=== PATIENT | male | born 1975 | race Caucasian/White ===

== ENCOUNTER 2016-11-17 12:23 | Emergency (ER) | payer OTHER ==
[2016-11-17 12:27] VITALS: BP 155/82; PULSE 91; TEMP 98; BMI 32.2
[2016-11-17] MEDS ORDERED: predniSONE 20 MG TABLET (UD) ONE (13:19)
[2016-11-17] MEDS ORDERED: ALBUTEROL SO4 2.5/IPRATROPIUM 0.5 INH SOL 3 ML VIAL.NEB. NEB ONE ×3 (13:19→13:24)
--- NOTE | 2016-11-17 13:23 | PDOC ---
History of Present Illness - General Chief Complaint: Cold Symptoms Stated Complaint: COUGH Time Seen by Provider: 11/17/16 13:12 History Source: Patient Exam Limitations: No Limitations - History of Present Illness Initial Comments: 11/17/16 13:23 Patient is here with complaints of persistent cough, and chest tightness. States was seen by his PMD last week, given prescription for Zithromax which she completed course, also has been using antihistamines, Zyrtec with no complete resolve. 11/17/16 13:23 Timing/Duration: reports: changing over time, intermittent Severity: reports: mild, moderate Past History - Travel Traveled outside of the country in the last 30 days: No Close contact w/someone who was outside of country & ill: No - Past Medical History Allergies/Adverse Reactions: Allergies Allergy/AdvReac Type Severity Reaction Status Date / Time No Known Drug Allergies Allergy Verified 11/17/16 12:27 seafood Allergy Uncoded 11/17/16 12:27 Home Medications: Ambulatory Orders Acetaminophen [Tylenol] 650 mg PO DAILY 07/10/15 Aspirin/Acetaminophen/Caffeine [Excedrin Migraine Caplet] 1 each PO Q6H PRN #12 tablet 07/10/15 Albuterol 0.083% Nebulizer Mitzy [Ventolin 0.083% Nebulizer Soln -] 1 neb NEB Q4H PRN #30 vial 11/17/16 Prednisone [Deltasone -] 20 mg PO BID #8 tablet 11/17/16 Asthma: Yes ( A CHILD) HTN: Yes - Psycho/Social/Smoking Cessation Hx Anxiety: No Suicidal Ideation: No Smoking History: Never smoked Have you smoked in the past 12 months: No Hx Alcohol Use: Yes (SOCIAL) Drug/Substance Use Hx: No Substance Use Type: None Review of Systems - Review of Systems Able to Perform ROS?: Yes Is the patient limited Czech proficient: Yes Constitutional: Yes: Symptoms Reported, See HPI, Loss of Appetite, Malaise. No : Fever HEENTM: Yes: Symptoms Reported, See HPI, Nose Pain, Nose Congestion. No: Difficulty Swallowing Respiratory: Yes: Symptoms reported, See HPI, Cough (moist/ ), Shortness of Breath, Wheezing Cardiac (ROS): No: Symptoms Reported ABD/GI: No: Symptoms Reported Musculoskeletal: No: Symptoms Reported Neurological: Yes: Symptoms reported, See HPI, Headache All Other Systems: Reviewed and Negative *Physical Exam - Vital Signs Last Vital Signs Temp Pulse Resp BP Pulse Ox 98.0 F 91 H 20 155/82 99 11/17/16 12:24 11/17/16 12:24 11/17/16 12:24 11/17/16 12:24 11/17/16 12:24 - Physical Exam General Appearance: Yes: Nourished, Appropriately Dressed, Apparent Distress HEENT: positive: GIOVANNY, TMs Normal (congestive the landmarks easily visualized), Pharynx Normal, Rhinorrhea, Sinus Tenderness Neck: positive: Supple. negative: Tender Respiratory/Chest: positive: Lungs Clear, Decreased Breath Sounds. negative: Normal Breath Sounds Cardiovascular: positive: Regular Rate Gastrointestinal/Abdominal: positive: Soft. negative: Tender Integumentary: positive: Normal Color, Dry, Warm, Pale Neurologic: positive: white sugar boiler II-XII NML intact, Fully Oriented, Alert, Normal Mood/ Affect, Normal Response, Motor Strength 5/5 Medical Decision Making - Medical Decision Making 11/17/16 14:21 Much improved after 2 DuoNeb and prednisone. Patient states is ready for discharge *DC/Admit/Observation/Transfer Diagnosis at time of Disposition: Asthma Qualifiers: Asthma severity: mild intermittent Asthma complication type: uncomplicated Qualified Code(s): J45.20 - Mild intermittent asthma, uncomplicated - Discharge Dispostion Disposition: HOME Condition at time of disposition: Stable Admit: No - Referrals Referrals: Kwabena Edgar MD [Primary Care Provider] - - Patient Instructions Printed Discharge Instructions: DI for Viral Upper Respiratory Infection -- Adult Additional Instructions: Rest, drink lots of fluids: Teas, water, soups, Pedialyte Saltwater gargles Steamy showers/seem to face break up mucus Avoid contact with others until fevers and cough resolved Lots of handwashing and good hygiene Continue [id number] medications for symptomatic relief Tylenol or Motrin for fever and pain Continue albuterol nebulizers every 4-6 hours for the next 2 days then as needed for continued cough Prednisone as directed until completed Followup with private physician in one to 2 days Return to emergency department / pediatric hospital for worsened symptoms, fevers, dehydration - Post Discharge Activity Work/School Note: Back to Work
[2016-11-17] MEDS ORDERED: predniSONE 20 MG TABLET (UD) PO ONE (13:25)
== END 2016-11-17 14:26 | disposition home or self-care (01) ==
LOC: JERFT 12:23
PROC: 3E0F7GC Introduction of Other Therapeutic Substance into Respiratory Tract, Via Natural or Artificial Opening (ICD-10-PCS; principal; 2016-11-17)
DX: J45.20 Mild intermittent asthma, uncomplicated (principal); I10 Essential (primary) hypertension
CPT/HCPCS: 94640; 99281-25

== ENCOUNTER 2017-01-22 10:59 | Emergency (ER) | payer OTHER ==
[2017-01-22 11:10] VITALS: PULSE 92; TEMP 97.9; BMI 29.7
[2017-01-22] MEDS ORDERED: predniSONE 20 MG TABLET (UD) PO ONE (11:52)
[2017-01-22] MEDS ORDERED: ALBUTEROL SO4 2.5/IPRATROPIUM 0.5 INH SOL 3 ML VIAL.NEB. NEB ONE (11:55)
[2017-01-22] MEDS: ALBUTEROL SO4 2.5/IPRATROPIUM 0.5 INH SOL 3 ML VIAL.NEB. NEB SCH ×5 (12:00→12:30)
[2017-01-22] MEDS ORDERED: guaiFENesin/D-METHORPHAN HB 10 ML UNIT-DOSE CUPS PO ONE (12:05)
--- NOTE | 2017-01-22 12:16 | PDOC ---
History of Present Illness - General Chief Complaint: Asthma Stated Complaint: COUGH, WHEEZING Time Seen by Provider: 01/22/17 11:39 History Source: Patient - History of Present Illness Timing/Duration: reports: other Associated Symptoms: reports: chest pain/soreness, cough, shortness of breath, wheezing. denies: fever/chills Past History - Past Medical History Allergies/Adverse Reactions: Allergies Allergy/AdvReac Type Severity Reaction Status Date / Time No Known Drug Allergies Allergy Verified 01/22/17 11:07 seafood Allergy Uncoded 01/22/17 11:07 Home Medications: Ambulatory Orders Benzonatate [Tessalon Perle -] 100 mg PO TID #21 capsule 01/22/17 Asthma: Yes ( A CHILD) HTN: Yes - Psycho/Social/Smoking Cessation Hx Anxiety: No Suicidal Ideation: No Smoking History: Never smoked Have you smoked in the past 12 months: No Information on smoking cessation initiated: No Hx Alcohol Use: No Drug/Substance Use Hx: No Substance Use Type: None Review of Systems - Review of Systems Constitutional: No: Chills, Fever Respiratory: Yes: Cough, Shortness of Breath, Wheezing Cardiac (ROS): Yes: Chest Pain *Physical Exam - Vital Signs Last Vital Signs Temp Pulse Resp BP Pulse Ox 97.9 F 92 H 18 149/91 100 01/22/17 11:07 01/22/17 11:07 01/22/17 11:07 01/22/17 11:07 01/22/17 11:07 - Physical Exam General Appearance: Yes: Appropriately Dressed. No: Apparent Distress HEENT: positive: Normal Voice Neck: positive: Supple Respiratory/Chest: positive: Lungs Clear, Normal Breath Sounds. negative: Respiratory Distress Cardiovascular: positive: Regular Rate, S1, S2 Extremity: positive: Normal Inspection Integumentary: positive: Dry, Warm Neurologic: positive: Fully Oriented, Alert, Normal Mood/Affect Heart Score/ECG Review - ECG Intrepretation Comment:: 01/22/17 13:52 EKG w/ occasional PVCs, otherwise normal EKG as d/w ED attg ED Treatment Course - LABORATORY CBC & Chemistry Diagram: 01/22/17 12:40 01/22/17 12:40 - RADIOLOGY Radiology Studies Ordered: Category Date Time Status CHEST PA & LAT [RAD] Stat Radiology 01/22/17 11:59 Ordered Medical Decision Making - Medical Decision Making 01/22/17 12:09 41-year-old male, h/o asthma in childhood only, non-smoker presents with shortness of breath. Patient states for the past several weeks has had a non- productive cough with wheezing mostly at night. Went to see his doctor 3 weeks ago and diagnosed with bronchitis and given Z-Pack which he completed. States CXR was done but negative. Uses rescue inhaler as needed. Patient states he was also referred to a chip bin operator, who he saw 2 weeks ago who told patient he was wheezing on exam but PFTs testing was negative for asthma as per patient. States he continues to have wheezing at night and besides rescue inhaler, is also using his daughter's nebulizer treatments. Decided to come to ER today because today while walking up a hill, he became "winded". Also c/o intermittent sharp, substernal chest pain that he attributes to his cough. Patient denies any fever, chills, hemoptysis, unexplained weight loss, night sweats, recent travel or sick contacts. See exam Possible reactive airway disease Neg PFTs 2 weeks ago per pt Completed zpack w/ clean CXR in doctor's office Non-smoker Stable w/ clear chest/lungs on exam -nebs -pred -cxr -ekg -labs -reassess 01/22/17 12:17 01/22/17 13:52 Workup negative in ED, patient feeling better and does not have chest pain at this time. Given no risk factors for cardiac disease with poor story and low heart score, feel comfortable sending patient home at this time to continue follow-up with PMD and chip bin operator 01/22/17 13:57 01/22/17 13:58 *DC/Admit/Observation/Transfer Diagnosis at time of Disposition: Cough - Discharge Dispostion Disposition: HOME Condition at time of disposition: Improved - Prescriptions Prescriptions: Benzonatate [Tessalon Perle -] 100 mg PO TID #21 capsule - Patient Instructions Printed Discharge Instructions: Cough Additional Instructions: Use rescue inhaler as needed for wheezing and antitussive as needed and f/u with PMD
--- NOTE | 2017-01-22 12:56 | EKG ---
Test Reason : Blood Pressure : / mmHG Vent. Rate : 081 BPM Atrial Rate : 081 BPM P-R Int : 156 ms QRS Dur : 090 ms QT Int : 362 ms P-R-T Axes : 062 055 052 degrees QTc Int : 420 ms SINUS RHYTHM WITH OCCASIONAL PREMATURE VENTRICULAR COMPLEXES ATIAL ABNORMALITY NO PREVIOUS ECGS AVAILABLE REPEAT EKG IF CLINICALLY INDICATED Confirmed by THAD ROY MD ([id number]) on 01/22/2017 12:55:45 PM Referred By: Confirmed By:THAD ROY MD
[2017-01-22 13:05] LABS: MCH 28.1 pg (25.7-33.7); MCHC 32.9 g/dl (32.0-35.9); MEAN CELL VOLUME 85.4 fl (80-96); NEUTROPHILS 70.3 % (42.8-82.8); PLATELET COUNT 197 K/MM3 (134-434); RDW 14.2 % (11.9-15.9); WHITE BLOOD COUNT 7.8 K/mm3 (4.0-10.0)
[2017-01-22 13:19] LABS: ALBUMIN 3.9 g/dl (3.4-5.0); ANION GAP 7 (8-16); BILIRUBIN,TOTAL 0.5 mg/dL (0.2-1.0); CALCIUM 9.3 mg/dL (8.5-10.1); CO2 26 mmol/L (21-32); CREATININE 1.1 mg/dL (0.7-1.3); GLUCOSE,RANDOM 96 mg/dL (74-106); SGOT/AST 26 U/L (15-37); SGPT/ALT 41 U/L (12-78); TOT PROT 7.2 g/dl (6.4-8.2)
[2017-01-22 13:22] LABS: ALK PHOS 63 U/L (45-117); CPK 331 IU/L (39-308); TROPONIN I < 0.02 ng/ml (0.00-0.05)
[2017-01-22] MEDS ORDERED: predniSONE 20 MG TABLET (UD) ONE ×2 (13:41→13:42)
[2017-01-22] MEDS ORDERED: guaiFENesin 200 MG/10 ML 10 ML UNIT-DOSE CUPS ONE (13:41)
[2017-01-22 14:08] VITALS: BP 153/84
== END 2017-01-22 14:07 | disposition home or self-care (01) ==
LOC: JER 10:59 → JERFT 10:59 → JER 14:07
PROC: 3E0F7GC Introduction of Other Therapeutic Substance into Respiratory Tract, Via Natural or Artificial Opening (ICD-10-PCS; principal; 2017-01-22)
DX: R05 Cough (principal); I10 Essential (primary) hypertension
CPT/HCPCS: 36415; 71020-TC; 80053; 82553; 84484; 85025; 93005; 93010; 94640; 99282-25

== ENCOUNTER 2017-02-04 17:48 | Emergency (ER) | payer OTHER ==
[2017-02-04 17:59] VITALS: TEMP 97.8; BMI 32.8
--- NOTE | 2017-02-04 18:35 | PDOC ---
History of Present Illness <Sangeetha Haider - Last Filed: 02/04/17 22:01> - History of Present Illness Initial Comments: 02/04/17 21:07 The patient is a 41 year old male, with a significant past medical history of tension headaches, hypertension, and asthma, who presents to the emergency department with sharp groin pain radiating to lower back since 2PM today. The patient states his pain is intermittent. He reports experiencing a sharp pain to his right lower back with urination. He reports taking ibuprofen today with little to no improvement of pain. He reports his pain is exacerbated with movement. Secondarily, the patient reports he has been experiencing blood in his stools for about a year and was advised to see a GI specialist, however, the referrals have been for physicians whom do not take his insurance. He admits he has found a physician and will be seeing him/her soon. He reports being evaluated for his hematochezia at the onset about a year ago at [facility] and reports no Hx of hemorrhoids or fissures at that time. He denies chest pain, shortness of breath, headache and dizziness. He denies fever, chills, nausea, vomit, diarrhea and constipation. He denies dysuria, frequency, urgency and hematuria. Allergies: NKDA <Madisyn Bennett - Last Filed: 02/04/17 23:09> - General Chief Complaint: Pain, Acute Stated Complaint: SHARP SIDE PAIN Time Seen by Provider: 02/04/17 18:33 Past History - Past Medical History Asthma: Yes ( A CHILD) HTN: Yes - Immunization History Immunization Up to Date: Yes - Psycho/Social/Smoking Cessation Hx Anxiety: No Suicidal Ideation: No Smoking History: Never smoked Have you smoked in the past 12 months: No Hx Alcohol Use: Yes Drug/Substance Use Hx: No Substance Use Type: None <Sangeetha Haider - Last Filed: 02/04/17 22:01> <Madisyn Bennett - Last Filed: 02/04/17 23:09> - Past Medical History Allergies/Adverse Reactions: Allergies Allergy/AdvReac Type Severity Reaction Status Date / Time No Known Drug Allergies Allergy Verified 02/04/17 17:55 seafood Allergy Uncoded 02/04/17 17:55 Home Medications: Ambulatory Orders Losartan Potassium 50 mg PO DAILY 02/04/17 Review of Systems - Review of Systems Able to Perform ROS?: Yes Comments:: 02/04/17 21:46 CONSTITUTIONAL: Absent: fever, chills, diaphoresis, generalized weakness, malaise, loss of appetite HEENT: Absent: rhinorrhea, nasal congestion, throat pain, throat swelling, difficulty swallowing, mouth swelling, ear pain, eye pain, visual Changes CARDIOVASCULAR: Absent: chest pain, syncope, palpitations, irregular heart rate, lightheadedness , peripheral edema RESPIRATORY: Absent: cough, shortness of breath, dyspnea with exertion, orthopnea, wheezing, stridor, hemoptysis GASTROINTESTINAL: (+) right suprapubic pain radiating to low back. Absent: abdominal distension, nausea, vomiting, diarrhea, constipation, melena, hematochezia GENITOURINARY: Absent: dysuria, frequency, urgency, hesitancy, hematuria, flank pain, genital pain MUSCULOSKELETAL: (+) right low back pain. Absent: arthralgia, joint swelling SKIN: Absent: rash, itching, pallor HEMATOLOGIC/IMMUNOLOGIC: Absent: easy bleeding, easy bruising, lymphadenopathy, frequent infections ENDOCRINE: Absent: unexplained weight gain, unexplained weight loss, heat intolerance, cold intolerance NEUROLOGIC: Absent: headache, focal weakness or paresthesias, dizziness, unsteady gait, seizure, mental status changes, bladder or bowel incontinence PSYCHIATRIC: Absent: anxiety, depression, suicidal or homicidal ideation, hallucinations. <Madisyn Bennett - Last Filed: 02/04/17 23:09> *Physical Exam - Vital Signs Last Vital Signs Temp Pulse Resp BP Pulse Ox 97.8 F 77 18 126/87 96 02/04/17 17:56 02/04/17 17:56 02/04/17 17:56 02/04/17 17:56 02/04/17 17:56 <Sangeetha Haider - Last Filed: 02/04/17 22:01> - Vital Signs Last Vital Signs Temp Pulse Resp BP Pulse Ox 97.8 F 67 17 135/89 99 02/04/17 17:56 02/04/17 19:47 02/04/17 19:47 02/04/17 19:47 02/04/17 19:47 - Physical Exam Comments: 02/04/17 21:48 GENERAL: Well developed, well nourished. Awake and alert. No acute distress. HEENT: Normocephalic, atraumatic. PERRLA, EOMI. No conjunctival pallor. Sclera are non- icteric. Moist mucous membranes. Oropharynx is clear. NECK: Supple. Full ROM. No JVD. Carotid pulses 2+ and symmetric, without bruits. No thyromegaly. No lymphadenopathy. CARDIOVASCULAR: Regular rate and rhythm. No murmurs, rubs, or gallops. Distal pulses are 2+ and symmetric. PULMONARY: No evidence of respiratory distress. Lungs clear to auscultation bilaterally. No wheezing, rales or rhonchi. ABDOMINAL: Soft. Non-tender. Non-distended. No rebound or guarding. No organomegaly. Normoactive bowel sounds. MUSCULOSKELETAL Normal range of motion at all joints. No bony deformities or tenderness. No CVA tenderness. EXTREMITIES: No cyanosis. No clubbing. No edema. No calf tenderness. SKIN: Warm and dry. Normal capillary refill. No rashes. No jaundice. NEUROLOGICAL: Alert, awake, appropriate. Cranial nerves 2-12 intact. Normoreflexic in the upper and lower extremities. Normal speech. Toes are down-going bilaterally. Gait is normal without ataxia. PSYCHIATRIC: Cooperative. Good eye contact. Appropriate mood and affect. <Madisyn Bennett - Last Filed: 02/04/17 23:09> ED Treatment Course - LABORATORY CBC & Chemistry Diagram: 02/04/17 18:45 02/04/17 18:45 <Sangeetha Haider - Last Filed: 02/04/17 22:01> - LABORATORY CBC & Chemistry Diagram: 02/04/17 18:45 02/04/17 18:45 - ADDITIONAL ORDERS Additional order review: Laboratory Results 02/04/17 02/04/17 18:51 18:45 Sodium 141 Potassium 3.9 Chloride 104 Carbon Dioxide 28 Anion Gap 9 BUN 15 D Creatinine 1.2 Creat Clearance w eGFR > 60 Random Glucose 86 Calcium 8.8 Total Bilirubin 0.6 AST 29 ALT 54 D Alkaline Phosphatase 73 Total Protein 7.0 Albumin 3.7 Urine Color Ltyellow Urine Appearance Clear Urine pH 5.0 Urine Protein Negative Urine Glucose (UA) Negative Urine Ketones Negative Urine Blood Negative Urine Nitrite Negative Urine Bilirubin Negative Urine Urobilinogen Negative Ur Leukocyte Esterase Trace Urine RBC <1 Urine WBC 3 Urine Mucus Rare 02/04/17 18:45 RBC 4.45 MCV 85.8 MCHC 33.9 RDW 14.0 MPV 9.8 Neutrophils % 63.5 Lymphocytes % 20.0 D Monocytes % 9.1 Eosinophils % 7.1 H Basophils % 0.3 - RADIOLOGY Radiograph Interpretation: 02/04/17 23:08 EXAM: CT abdomen/pelvis with contrast DATE OF SERVICE: 2017-02-04 20:45:59 REASON FOR EXAM: Right flank pain FINDINGS: There is no free air in the abdomen. There is a 2 mm nonobstructing mid pole right renal calculus. There is a 3 mm nonobstructing lower pole left renal calculus. There is no hydronephrosis or hydroureter. No obstructing ureteral calculus is seen. There are no obvious gallstones. There is a moderate amount of stool noted in the colon. There is no evidence of intestinal obstruction. The appendix is normal in size. Urinary bladder is minimally distended. There are no bladder calculi. There are scattered inguinal lymph nodes, likely reactive. reported by: Victor Manuel Constantino MD on 02/04/2017 at 21:33 EST - Medications Given in the ED: ED Medications Discontinued Medications Generic Name Dose Route Start Last Admin Trade Name Freq PRN Reason Stop Dose Admin Sodium Chloride 1,000 mls @ 1,000 mls/hr 02/04/17 18:36 02/04/17 18:51 Normal Saline - IV 02/04/17 19:35 1,000 mls/hr ASDIR STA Administration Ketorolac Tromethamine 30 mg 02/04/17 18:36 02/04/17 18:51 Toradol Injection - IVPUSH 02/04/17 18:37 30 mg ONCE ONE Administration <Madisyn Bennett - Last Filed: 02/04/17 23:09> Medical Decision Making - Medical Decision Making 02/04/17 21:58 41-year-old male has been experiencing right lower quadrant pain that radiates towards his back. Since this afternoon. He Denies any testicular pain, no recent trauma, no heavy lifting Fever, no chills, no vomiting, no diarrhea Abdomen is soft with no rebound or guarding Differential includes kidney stones, appendicitis CBC, chemistries and urine are unremarkable Stable vital signs, afebrile, normotensive CAT scan of abdomen and pelvis with contrast shows normal appendix, no hydronephrosis, there is presence of small stones in the kidneys but none in the ureter millimeters, no free air, no obstruction, moderate amount of stool Impression right flank pain <Sangeetha Haider - Last Filed: 02/04/17 22:01> *DC/Admit/Observation/Transfer <Sangeetha Haider - Last Filed: 02/04/17 22:01> - Attestations Scribe Attestion: 02/04/17 21:50 Documentation prepared by Madisyn Bennett, acting as medical coding technician for Sangeetha Haider MD <Madisyn Bennett - Last Filed: 02/04/17 23:09> Diagnosis at time of Disposition: Flank pain, Right lateral abdominal pain Constipation Qualifiers: Constipation type: other constipation type Qualified Code(s): K59.09 - Other constipation - Discharge Dispostion Disposition: HOME Condition at time of disposition: Stable - Referrals Referrals: Kwabena Edgar MD [Primary Care Provider] - - Patient Instructions Printed Discharge Instructions: DI for Constipation Additional Instructions: Please see your physician this week Take miralax for your constipation Return if you have worsening pain,fever or vomiting
[2017-02-04] MEDS ORDERED: SODIUM CHLORIDE 1,000 ML IV STA (18:36)
[2017-02-04] MEDS ORDERED: KETOROLAC TROMETHAMINE 30 MG/1 ML VIAL IVPUSH ONE (18:36)
[2017-02-04] MEDS ORDERED: KETOROLAC TROMETHAMINE 30 MG/1 ML VIAL ONE (18:42)
[2017-02-04 18:54] LABS: BASOPHIL 0.3 % (0-2.0); EOSINOPHIL 7.1 % (0-4.5); MCH 29.1 pg (25.7-33.7); MCHC 33.9 g/dl (32.0-35.9); MEAN CELL VOLUME 85.8 fl (80-96); MEAN PLT VOLUME 9.8 fl (7.5-11.1); NEUTROPHILS 63.5 % (42.8-82.8); PLATELET COUNT 212 K/MM3 (134-434); WHITE BLOOD COUNT 8.8 K/mm3 (4.0-10.0)
[2017-02-04 18:57] LABS: URINE APPEARANCE CLEAR; URINE BILIRUBIN NEGATIVE (NEGATIVE); URINE BLOOD NEGATIVE (NEGATIVE); URINE COLOR LTYELLOW; URINE GLUCOSE (UA) NEGATIVE (NEGATIVE); URINE KETONE NEGATIVE (NEGATIVE); URINE LEUK ESTERASE TRACE (NEGATIVE); URINE NITRITE NEGATIVE (NEGATIVE); URINE PROTEIN NEGATIVE (NEGATIVE); URINE UROBILINOGEN NEGATIVE mg/dL (0.2-1.0)
[2017-02-04 18:59] LABS: URINE MUCUS RARE; URINE RBC <1 /hpf (0-3); URINE WBC 3 /hpf (3-5)
[2017-02-04 19:48] VITALS: BP 135/89; PULSE 67
[2017-02-04 20:01] LABS: ALBUMIN 3.7 g/dl (3.4-5.0); ANION GAP 9 (8-16); CALCIUM 8.8 mg/dL (8.5-10.1); CO2 28 mmol/L (21-32); GLUCOSE,RANDOM 86 mg/dL (74-106); SGPT/ALT 54 U/L (12-78)
[2017-02-04 20:04] LABS: ALK PHOS 73 U/L (45-117); BILIRUBIN,TOTAL 0.6 mg/dL (0.2-1.0); CREATININE 1.2 mg/dL (0.7-1.3); SGOT/AST 29 U/L (15-37)
== END 2017-02-04 22:10 | disposition home or self-care (01) ==
LOC: JER 17:48
PROC: 3E0333Z Introduction of Anti-inflammatory into Peripheral Vein, Percutaneous Approach (ICD-10-PCS; principal; 2017-02-04)
PROC: 3E0337Z Introduction of Electrolytic and Water Balance Substance into Peripheral Vein, Percutaneous Approach (ICD-10-PCS; 2017-02-04)
DX: K59.09 Other constipation (principal); R10.9 Unspecified abdominal pain; I10 Essential (primary) hypertension; J45.909 Unspecified asthma, uncomplicated; Z91.013 Allergy to seafood
CPT/HCPCS: 36415; 74177-TC; 80053; 81003; 81015; 85025; 96361; 96374; 99283-25

== ENCOUNTER 2017-02-09 20:30 | Emergency (ER) | payer OTHER ==
[2017-02-09 20:35] VITALS: BP 140/88; PULSE 96; TEMP 98.3; BMI 32.8
[2017-02-09] MEDS ORDERED: SODIUM CHLORIDE 1,000 ML IV STA (22:24)
[2017-02-09 22:57] LABS: BASOPHIL 1.2 % (0-2.0); EOSINOPHIL 8.1 % (0-4.5); MEAN CELL VOLUME 85.3 fl (80-96); MEAN PLT VOLUME 10.1 fl (7.5-11.1); NEUTROPHILS 57.3 % (42.8-82.8); PLATELET COUNT 219 K/MM3 (134-434); RDW 13.8 % (11.9-15.9); URINE APPEARANCE CLEAR; URINE BILIRUBIN NEGATIVE (NEGATIVE); URINE BLOOD NEGATIVE (NEGATIVE); URINE COLOR STRAW; URINE GLUCOSE (UA) NEGATIVE (NEGATIVE); URINE KETONE NEGATIVE (NEGATIVE); URINE LEUK ESTERASE TRACE (NEGATIVE); URINE NITRITE NEGATIVE (NEGATIVE); URINE PROTEIN NEGATIVE (NEGATIVE); URINE UROBILINOGEN NEGATIVE mg/dL (0.2-1.0); WHITE BLOOD COUNT 7.6 K/mm3 (4.0-10.0)
[2017-02-09 23:00] LABS: URINE RBC 1 /hpf (0-3); URINE WBC 8 /hpf (3-5)
[2017-02-09] MEDS ORDERED: ACETAMINOPHEN 1000 MG/100 ML VIAL (NON FORMULARY) IVPB ONE (23:05)
[2017-02-09] MEDS ORDERED: ACETAMINOPHEN INJECTION 100 ML IVPB ONE (23:06)
[2017-02-09 23:34] LABS: ALBUMIN 3.8 g/dl (3.4-5.0); ALK PHOS 68 U/L (45-117); ANION GAP 8 (8-16); BILIRUBIN,TOTAL 0.4 mg/dL (0.2-1.0); CALCIUM 8.9 mg/dL (8.5-10.1); CO2 27 mmol/L (21-32); GLUCOSE,RANDOM 83 mg/dL (74-106); SGOT/AST 24 U/L (15-37); SGPT/ALT 41 U/L (12-78); TOT PROT 7.2 g/dl (6.4-8.2)
--- NOTE | 2017-02-10 01:01 | PDOC ---
History of Present Illness <Madisyn Bennett - Last Filed: 02/10/17 01:15> - History of Present Illness Initial Comments: 02/10/17 00:55 "The patient is a 41 year old male, with a significant past medical history of tension headaches, hypertension, asthma, and kidney stones (diagnosed on 02/04/17 ) who presents to the emergency department with persistent right groin pain, dysuria, and chills today s/p being diagnosed with bilateral kidney stones on 02/04/17 in the ED. As per the patients previous ED chart, he had an abdomen/ pelvis CT revealing a 2 mm nonobstructing mid pole right renal calculus and a 3 mm nonobstructing lower pole left renal calculus. Since then, the pain has migrated from his side downwards. The patient states pain is localized to his right groin, 5/10 at rest and 7/10 with movement. He also reports pain exacerbation with urination. He also reports burning on urination and slightly darker urine. He denies noticing red blood in his urine. He states she has been drinking water, as well as, taking Tylenol and Ibuprofen for his pain with little to no relief. He denies chest pain, shortness of breath, headache and dizziness. He denies fever, nausea, vomit, diarrhea and constipation. He denies frequency, urgency and hematuria. Allergies: NKDA " <Sandeep Basurto - Last Filed: 02/10/17 01:27> - General Chief Complaint: Pain Stated Complaint: STOMACH PAIN Time Seen by Provider: 02/09/17 22:00 Past History <Madisyn Bennett - Last Filed: 02/10/17 01:15> - Past Medical History Asthma: Yes ( A CHILD) HTN: Yes Kidney Stones: Yes - Immunization History Immunization Up to Date: Yes - Psycho/Social/Smoking Cessation Hx Anxiety: No Suicidal Ideation: No Smoking History: Never smoked Have you smoked in the past 12 months: No Hx Alcohol Use: Yes Drug/Substance Use Hx: No Substance Use Type: None <Sandeep Basurto - Last Filed: 02/10/17 01:27> - Past Medical History Allergies/Adverse Reactions: Allergies Allergy/AdvReac Type Severity Reaction Status Date / Time No Known Drug Allergies Allergy Verified 02/09/17 20:35 seafood Allergy Uncoded 02/09/17 20:35 Home Medications: Ambulatory Orders Losartan Potassium 50 mg PO DAILY 02/04/17 Review of Systems - Review of Systems Comments:: 02/10/17 00:57 """GENERAL/CONSTITUTIONAL: (+) chills. No fever. No weakness. HEAD, EYES, EARS, NOSE AND THROAT: No change in vision. No ear pain or discharge. No sore throat. CARDIOVASCULAR: No chest pain or shortness of breath. RESPIRATORY: No cough, wheezing, or hemoptysis. GASTROINTESTINAL: (+) right groin/RLQ pain. No nausea, vomiting, diarrhea or constipation. GENITOURINARY: (+) dysuria, No frequency or hematuria MUSCULOSKELETAL: No joint or muscle swelling or pain. No neck or back pain. SKIN: No rash NEUROLOGIC: No headache, vertigo, loss of consciousness, or change in strength/ sensation. ENDOCRINE: No increased thirst. No abnormal weight change. HEMATOLOGIC/LYMPHATIC: No anemia, easy bleeding, or history of blood clots. ALLERGIC/IMMUNOLOGIC: No hives or skin allergy. """ <Sandeep Basurto - Last Filed: 02/10/17 01:27> *Physical Exam - Vital Signs Last Vital Signs Temp Pulse Resp BP Pulse Ox 98.3 F 96 H 18 140/88 99 02/09/17 20:32 02/09/17 20:32 02/09/17 20:32 02/09/17 20:32 02/09/17 20:32 <Madisyn Bennett - Last Filed: 02/10/17 01:15> - Vital Signs Last Vital Signs Temp Pulse Resp BP Pulse Ox 98.3 F 96 H 18 140/88 99 02/09/17 20:32 02/09/17 20:32 02/09/17 20:32 02/09/17 20:32 02/09/17 20:32 - Physical Exam Comments: 02/10/17 00:57 """GENERAL: Awake, alert, and fully oriented, in no acute distress HEAD: No signs of trauma EYES: PERRLA, EOMI, sclera anicteric, conjunctiva clear ENT: Auricles normal inspection, hearing grossly normal, nares patent, oropharynx clear without exudates. Moist mucosa NECK: Normal ROM, supple, no lymphadenopathy, JVD, or masses LUNGS: Breath sounds equal, clear to auscultation bilaterally. No wheezes, and no crackles HEART: Regular rate and rhythm, normal S1 and S2, no murmurs, rubs or gallops ABDOMEN: Soft, nontender, normoactive bowel sounds. No guarding, no rebound. No masses EXTREMITIES: Normal range of motion, no edema. No clubbing or cyanosis. No cords, erythema, or tenderness : (+) Right CVA tenderness, (+) R scrotal tenderness, no masses, no inguinal hernia. NEUROLOGICAL: Cranial nerves II through XII grossly intact. Normal speech, normal gait SKIN: Warm, Dry, normal turgor, no rashes or lesions noted. """ <Sandeep Basurto - Last Filed: 02/10/17 01:27> ED Treatment Course - LABORATORY CBC & Chemistry Diagram: 02/09/17 22:45 02/09/17 22:45 - ADDITIONAL ORDERS Additional order review: Laboratory Results 02/09/17 02/09/17 22:45 22:45 Sodium 140 Potassium 3.9 Chloride 105 Carbon Dioxide 27 Anion Gap 8 BUN 12 Creatinine 1.0 Creat Clearance w eGFR > 60 Random Glucose 83 Calcium 8.9 Total Bilirubin 0.4 D AST 24 ALT 41 D Alkaline Phosphatase 68 Total Protein 7.2 Albumin 3.8 Lipase 147 Urine Color Straw Urine Appearance Clear Urine pH 6.0 Urine Protein Negative Urine Glucose (UA) Negative Urine Ketones Negative Urine Blood Negative Urine Nitrite Negative Urine Bilirubin Negative Urine Urobilinogen Negative Ur Leukocyte Esterase Trace Urine RBC 1 Urine WBC 8 Ur Epithelial Cells Rare 02/09/17 22:45 RBC 4.37 MCV 85.3 MCHC 34.0 RDW 13.8 MPV 10.1 Neutrophils % 57.3 Lymphocytes % 25.5 D Monocytes % 7.9 Eosinophils % 8.1 H Basophils % 1.2 D - RADIOLOGY Radiograph Interpretation: 02/10/17 01:15 DATE OF SERVICE: 2017-02-09 23:45:56 EXAM: US TESTICLES AND TESTICULAR DUPLEX was read by Manuel Field MD at 00: 54 EST FINDINGS:Ultrasound testicles:The right testicle measures 4.0 x 3.6 x 2.8 cm, appears normal and demonstrates normal flow. Normal right epididymis. There is minimal hydrocoele. The left testicle measures 3.7 x 2.5 x 2.5 cm, appears normal and demonstrates normal flow. Normal left epididymis. There is a minimal hydrocoele. No varicocoele. Testicular duplex: There is normal arterial flow in both testicles. IMPRESSION: Minimal bilateral hydroceles. - Medications Given in the ED: ED Medications Discontinued Medications Generic Name Dose Route Start Last Admin Trade Name Freq PRN Reason Stop Dose Admin Acetaminophen 1,000 mg 02/09/17 23:05 02/09/17 23:10 Ofirmev Injection - IVPB 02/09/17 23:06 1,000 mg ONCE ONE Administration Sodium Chloride 1,000 mls @ 1,000 mls/hr 02/09/17 22:24 02/09/17 22:45 Normal Saline - IV 02/09/17 23:23 1,000 mls/hr ASDIR STA Administration <Madisyn Bennett - Last Filed: 02/10/17 01:15> - LABORATORY CBC & Chemistry Diagram: 02/09/17 22:45 02/09/17 22:45 - ADDITIONAL ORDERS Additional order review: Laboratory Results 02/09/17 02/09/17 22:45 22:45 Sodium 140 Potassium 3.9 Chloride 105 Carbon Dioxide 27 Anion Gap 8 BUN 12 Creatinine 1.0 Creat Clearance w eGFR > 60 Random Glucose 83 Calcium 8.9 Total Bilirubin 0.4 D AST 24 ALT 41 D Alkaline Phosphatase 68 Total Protein 7.2 Albumin 3.8 Lipase 147 Urine Color Straw Urine Appearance Clear Urine pH 6.0 Urine Protein Negative Urine Glucose (UA) Negative Urine Ketones Negative Urine Blood Negative Urine Nitrite Negative Urine Bilirubin Negative Urine Urobilinogen Negative Ur Leukocyte Esterase Trace Urine RBC 1 Urine WBC 8 Ur Epithelial Cells Rare 02/09/17 22:45 RBC 4.37 MCV 85.3 MCHC 34.0 RDW 13.8 MPV 10.1 Neutrophils % 57.3 Lymphocytes % 25.5 D Monocytes % 7.9 Eosinophils % 8.1 H Basophils % 1.2 D - RADIOLOGY Radiology Studies Ordered: Category Date Time Status SCROTUM AND CONTENTS US [US] Stat Ultrasound 02/09/17 23:13 Taken - Medications Given in the ED: ED Medications Discontinued Medications Generic Name Dose Route Start Last Admin Trade Name Freq PRN Reason Stop Dose Admin Acetaminophen 1,000 mg 02/09/17 23:05 02/09/17 23:10 Ofirmev Injection - IVPB 02/09/17 23:06 1,000 mg ONCE ONE Administration Sodium Chloride 1,000 mls @ 1,000 mls/hr 02/09/17 22:24 02/09/17 22:45 Normal Saline - IV 02/09/17 23:23 1,000 mls/hr ASDIR STA Administration <Sandeep Basurto - Last Filed: 02/10/17 01:27> Medical Decision Making - Medical Decision Making 02/10/17 00:59 41 M with 5 days of R sided pain, migrating from his R flank to his R groin. Pt had CTAP with IV contrast done on 02/04 when pain first began that showed bilateral nonobstructing stones. Negative for acute appy. Pain may be 2/2 passing kidney stone. However, pt's urine with no blood. No signs of infection either. Pt with mildly tender scrotum. Possible varicocele. Will evaluate with US to r/o torsion. - Labs, UA - Will not repeat CT at this time as pt had one 5 days ago. - scrotal US 02/10/17 01:23 US shows bilateral hydroceles. NO torsion. Pt reassessed. Is resting comfortably. Reports persistent mild pain in his R groin. UA with no blood, no signs of infection Cr 1.0 Will DC with urology f/u. <Sandeep Basurto - Last Filed: 02/10/17 01:27> *DC/Admit/Observation/Transfer <Madisyn Bennett - Last Filed: 02/10/17 01:15> - Attestations Physician Attestion: 02/10/17 01:26 I, Dr. Sandeep Basurto MD, attest that this document has been prepared under my direction and personally reviewed by me in its entirety. I further attest, that it accurately reflects all work, treatment, procedures and medical decision -making performed by me. <Sandeep Basurto - Last Filed: 02/10/17 01:27> Diagnosis at time of Disposition: Flank pain, Inguinal pain - Discharge Dispostion Disposition: HOME Condition at time of disposition: Good - Patient Instructions Printed Discharge Instructions: DI for Flank Pain Additional Instructions: Your ultrasound and labwork were unremarkable today. Please follow up with a urologist for further evaluation of your kidney stones and groin pain. Call the number provided to make an appointment within 1-2 weeks. If you experience worsening or persistent pain, fevers, vomiting, or any other concerning symptoms, return to the ER immediately.
== END 2017-02-10 01:38 | disposition home or self-care (01) ==
LOC: JER 20:30
PROC: 3E0337Z Introduction of Electrolytic and Water Balance Substance into Peripheral Vein, Percutaneous Approach (ICD-10-PCS; principal; 2017-02-09)
PROC: 3E033NZ Introduction of Analgesics, Hypnotics, Sedatives into Peripheral Vein, Percutaneous Approach (ICD-10-PCS; 2017-02-09)
DX: R10.31 Right lower quadrant pain (principal); N43.2 Other hydrocele; Z87.442 Personal history of urinary calculi; I10 Essential (primary) hypertension; G44.209 Tension-type headache, unspecified, not intractable
CPT/HCPCS: 36415; 76870-TC; 80053; 81003; 81015; 83690; 85025; 87086; 96361; 96374; 99284-25

== ENCOUNTER 2017-11-22 09:48 | Emergency (ER) | payer OTHER ==
[2017-11-22 10:02] VITALS: BMI 31.3
[2017-11-22] MEDS ORDERED: ONDANSETRON *ODT* 4 MG TABLET ONE (10:11)
[2017-11-22] MEDS ORDERED: ONDANSETRON *ODT* 4 MG TABLET SL ONE (10:11)
[2017-11-22] MEDS ORDERED: SODIUM CHLORIDE 1,000 ML IV STA (11:12)
[2017-11-22] MEDS ORDERED: METOCLOPRAMIDE HCL INJECTION 10 MG/2 ML VIAL IVPB ONE (11:12)
[2017-11-22] MEDS ORDERED: ACETAMINOPHEN 1000 MG/100 ML VIAL (NON FORMULARY) IVPB ONE (11:12)
[2017-11-22] MEDS ORDERED: FAMOTIDINE 20 MG/50 ML IVPB 20 MG/50 ML MG IVPB ONE ×2 (11:12→12:04)
--- NOTE | 2017-11-22 11:16 | PDOC ---
History of Present Illness - General Chief Complaint: Headache Stated Complaint: HEADACHE Time Seen by Provider: 11/22/17 11:03 - History of Present Illness Initial Comments: 11/22/17 11:13 42 M with h/o HTN presents to ED with headache since this morning. Pt states that he awoke this morning with a headache. He denies thunderclap or worst headache of life. Pt endorses nausea with vomiting. Denies neck stiffness, denies fevers. States that he has h/o headaches. This episode is similar to prior headaches. Denies weakness/numbness in any extremity. Denies confusion/ lethargy. Pt took two aspirin this morning but vomited them up. Past History - Past Medical History Allergies/Adverse Reactions: Allergies Allergy/AdvReac Type Severity Reaction Status Date / Time No Known Drug Allergies Allergy Verified 11/22/17 09:58 seafood Allergy Uncoded 11/22/17 09:58 Home Medications: Ambulatory Orders Losartan Potassium 50 mg PO DAILY 02/04/17 Asthma: Yes ( A CHILD) COPD: No HTN: Yes Kidney Stones: Yes - Immunization History Immunization Up to Date: Yes - Suicide/Smoking/Psychosocial Hx Smoking History: Never smoked Have you smoked in the past 12 months: No Hx Alcohol Use: Yes Drug/Substance Use Hx: No Substance Use Type: None Review of Systems - Review of Systems Comments:: 11/22/17 11:15 "GENERAL/CONSTITUTIONAL: No fever or chills. No weakness. HEAD, EYES, EARS, NOSE AND THROAT: No change in vision. No ear pain or discharge. No sore throat. CARDIOVASCULAR: No chest pain or shortness of breath. RESPIRATORY: No cough, wheezing, or hemoptysis. GASTROINTESTINAL: + nausea, vomiting, no diarrhea or constipation. GENITOURINARY: No dysuria, frequency, or change in urination. MUSCULOSKELETAL: No joint or muscle swelling or pain. No neck or back pain. SKIN: No rash NEUROLOGIC: + headache, no vertigo, loss of consciousness, or change in strength /sensation. ENDOCRINE: No increased thirst. No abnormal weight change. HEMATOLOGIC/LYMPHATIC: No anemia, easy bleeding, or history of blood clots. ALLERGIC/IMMUNOLOGIC: No hives or skin allergy. " *Physical Exam - Vital Signs Last Vital Signs Temp Pulse Resp BP Pulse Ox 98 F 82 19 154/100 95 11/22/17 09:58 06/22/18 09:58 11/22/17 09:58 11/22/17 09:58 11/22/17 09:58 - Physical Exam Comments: 11/22/17 11:15 "GENERAL: Awake, alert, and fully oriented, in no acute distress. HEAD: No signs of trauma EYES: PERRLA, EOMI, sclera anicteric, conjunctiva clear ENT: Auricles normal inspection, hearing grossly normal, nares patent, oropharynx clear without exudates. Moist mucosa NECK: Nontender, no stepoffs, Normal ROM, supple, no lymphadenopathy, JVD, or masses LUNGS: Breath sounds equal, clear to auscultation bilaterally. No wheezes, and no crackles HEART: Regular rate and rhythm, normal S1 and S2, no murmurs, rubs or gallops ABDOMEN: Soft, nontender, normoactive bowel sounds. No guarding, no rebound. No masses EXTREMITIES: Normal range of motion, no edema. No clubbing or cyanosis. No cords, erythema, or tenderness NEUROLOGICAL: Cranial nerves II through XII intact. 5/5 strength and sensation in all extremities, Normal speech, normal gait, normal cerebellar function SKIN: Warm, Dry, normal turgor, no rashes or lesions noted. " ED Treatment Course - LABORATORY CBC & Chemistry Diagram: 11/22/17 12:00 11/22/17 12:00 - Medications Given in the ED: ED Medications Discontinued Medications Generic Name Dose Route Start Last Admin Trade Name Freq PRN Reason Stop Dose Admin Ondansetron HCl 4 mg 11/22/17 10:11 11/22/17 10:14 Zofran Odt - SL 11/22/17 10:12 4 mg ONCE ONE Administration Medical Decision Making - Medical Decision Making 11/22/17 11:15 42 M with headache x 1 day. Pt well appearing with normal neuro exam. BAKER is consistent with previous episodes. No red flags for SAH/meningitis. - Labs - IVF, tylenol, reglan - Reassess 11/22/17 13:18 Labs wnl Pt reassessed - now feels much better Continues to have benign neuro exam. Abdomen is soft and nontender. Pt is well appearing, with normal vitals. Clinically stable for DC at this time. I discussed the physical exam findings, ancillary test results and final diagnoses with the patient. I answered all of the patient's questions. The patient was satisfied with the care received and felt comfortable with the discharge plan and treatment plan. The patient agrees to follow up with the primary care physician within 24-72 hours. *DC/Admit/Observation/Transfer Diagnosis at time of Disposition: Headache, tension-type - Discharge Dispostion Disposition: HOME - Referrals Referrals: Kwabena Edgar MD [Primary Care Provider] - - Patient Instructions Printed Discharge Instructions: DI for Headache Additional Instructions: Please follow up with your primary doctor within 1 week. If you experience worsening headache, vomiting, abdominal pain, fevers, or any other concerning symptoms, return to the ER immediately. - Post Discharge Activity Forms/Work/School Notes: Back to Work - Attestations Physician Attestion: 11/22/17 13:20 I, Dr. Sandeep Basurto MD, attest that this document has been prepared under my direction and personally reviewed by me in its entirety. I further attest, that it accurately reflects all work, treatment, procedures and medical decision -making performed by me.
[2017-11-22] MEDS ORDERED: ACETAMINOPHEN INJECTION 100 ML IVPB ONE (12:04)
[2017-11-22] MEDS ORDERED: METOCLOPRAMIDE HCL INJECTION 10 MG/2 ML VIAL ONE (12:04)
[2017-11-22 12:09] LABS: EOS % 1.9 % (0-4.5); HEMATOCRIT 41.6 % (35.4-49); LYMPH % 11.2 % (8-40); MCH 28.6 pg (25.7-33.7); MCHC 33.5 g/dl (32.0-35.9); MEAN CELL VOLUME 85.4 fl (80-96); MEAN PLT VOLUME 9.4 fl (7.5-11.1); MONO % 3.4 % (3.8-10.2); NEUT % 82.5 % (42.8-82.8); PLATELET COUNT 206 K/MM3 (134-434); RBC 4.87 M/mm3 (4.00-5.60); RDW 14.5 % (11.9-15.9)
[2017-11-22 12:32] LABS: ALBUMIN 3.9 g/dl (3.4-5.0); ALK PHOS 69 U/L (45-117); ANION GAP 5 (8-16); BILIRUBIN,TOTAL 0.4 mg/dL (0.2-1.0); BLOOD UREA NITROGEN 12 mg/dL (7-18); CALCIUM 8.9 mg/dL (8.5-10.1); CHLORIDE 107 mmol/L (98-107); CO2 29 mmol/L (21-32); CREATININE 0.9 mg/dL (0.7-1.3); GLUCOSE,RANDOM 111 mg/dL (74-106); POTASSIUM 4.2 mmol/L (3.5-5.1); SGOT/AST 46 U/L (15-37); SGPT/ALT 72 U/L (12-78); SODIUM 141 mmol/L (136-145); TOT PROT 7.6 g/dl (6.4-8.2)
[2017-11-22] MEDS ORDERED: MAG HYDROX/AL HYDROX/SIMETH 30 ML UNIT-DOSE CUP PO ONE (13:19)
[2017-11-22] MEDS ORDERED: MAG HYDROX/AL HYDROX/SIMETH 30 ML UNIT-DOSE CUP ONE (13:44)
[2017-11-22 15:06] VITALS: BP 152/90; PULSE 80; TEMP 98
== END 2017-11-22 15:06 | disposition home or self-care (01) ==
LOC: JER 09:48
PROC: 3E033GC Introduction of Other Therapeutic Substance into Peripheral Vein, Percutaneous Approach (ICD-10-PCS; principal; 2017-11-22)
PROC: 3E033NZ Introduction of Analgesics, Hypnotics, Sedatives into Peripheral Vein, Percutaneous Approach (ICD-10-PCS; 2017-11-22)
PROC: 3E033GC Introduction of Other Therapeutic Substance into Peripheral Vein, Percutaneous Approach (ICD-10-PCS; 2017-11-22)
DX: G44.209 Tension-type headache, unspecified, not intractable (principal); I10 Essential (primary) hypertension; Z87.09 Personal history of other diseases of the respiratory system; Z87.442 Personal history of urinary calculi
CPT/HCPCS: 36415; 70450-TC; 80053; 83690; 85025; 96365; 96375; 99281-25; J0131; J7030; Q0162

== ENCOUNTER 2018-07-04 09:14 | Emergency (ER) | payer SELFPAY ==
[2018-07-04 09:24] VITALS: BP 153/89; PULSE 73; TEMP 98.3; BMI 32.8
--- NOTE | 2018-07-04 10:14 | PDOC ---
History of Present Illness - General Chief Complaint: Injury Stated Complaint: RT EYE PAIN Time Seen by Provider: 07/04/18 09:34 History Source: Patient Exam Limitations: No Limitations Past History - Past Medical History Allergies/Adverse Reactions: Allergies Allergy/AdvReac Type Severity Reaction Status Date / Time No Known Drug Allergies Allergy Verified 07/04/18 09:24 seafood Allergy Uncoded 07/04/18 09:24 Home Medications: Ambulatory Orders Losartan Potassium 50 mg PO DAILY 02/04/17 Asthma: Yes ( A CHILD) COPD: No HTN: Yes (ran out of meds) Kidney Stones: Yes - Immunization History Immunization Up to Date: Yes - Suicide/Smoking/Psychosocial Hx Smoking History: Never smoked Have you smoked in the past 12 months: No Information on smoking cessation initiated: No Hx Alcohol Use: No Drug/Substance Use Hx: No Substance Use Type: None *Physical Exam - Vital Signs Last Vital Signs Temp Pulse Resp BP Pulse Ox 98.3 F 73 18 153/89 99 07/04/18 09:22 07/04/18 09:22 07/04/18 09:22 07/04/18 09:22 07/04/18 09:22 - Physical Exam General Appearance: No: Apparent Distress HEENT: positive: Other (No injection of eyes noted, slight tearing of R eye, R dot noted underneath R eyelid (removed), no corneal abrasion, no dye uptake) Moderate Sedation - Procedure Monitoring Vital Signs: Procedure Monitoring Vital Signs Temperature 98.3 F 07/04/18 09:22 Pulse Rate 73 07/04/18 09:22 Respiratory Rate 18 07/04/18 09:22 Blood Pressure 153/89 07/04/18 09:22 O2 Sat by Pulse Oximetry (%) 99 07/04/18 09:22 Medical Decision Making - Medical Decision Making 43 y/o M with no sig pmh presents with FB sensation in R eye. Was grinding a lock yesterday and was wearing eye protection but afterward felt something in his eye. Tried irrigating eye without much relief in pain. Denies photophobia, n /v, headache. FB noted underneath R eyelid After removal, patient felt a lot better Stable for d/c 07/04/18 10:11 *DC/Admit/Observation/Transfer Diagnosis at time of Disposition: Foreign body of right eye Qualifiers: Encounter type: initial encounter Qualified Code(s): T15.91XA - Foreign body on external eye, part unspecified, right eye, initial encounter - Discharge Dispostion Disposition: HOME Condition at time of disposition: Stable Decision to Admit order: No - Referrals Referrals: Kwabena Edgar MD [Primary Care Provider] - 3 days - Patient Instructions Printed Discharge Instructions: DI for Foreign Body in the Eye Additional Instructions: Thank you for choosing [facility]. It was a pleasure taking care of you. You were seen here for foreign body in eye which was removed. Return to the Emergency Department if your symptoms worsen or persist, have severe eye pain, blurred vision, loss of vision, vomiting, severe headache or other concerning symptoms. - Post Discharge Activity
== END 2018-07-04 10:19 | disposition home or self-care (01) ==
LOC: JERFT 09:14
DX: T15.91XA Foreign body on external eye, part unspecified, right eye, initial encounter (principal); X58.XXXA Exposure to other specified factors, initial encounter; Y93.89 Activity, other specified; Y92.89 Other specified places as the place of occurrence of the external cause; I10 Essential (primary) hypertension; J45.909 Unspecified asthma, uncomplicated
CPT/HCPCS: 99281-25

== ENCOUNTER 2018-08-28 11:26 | Emergency (ER) | payer OTHER ==
[2018-08-28 11:44] VITALS: BP 137/80; PULSE 61; TEMP 98.3; BMI 30.8
[2018-08-28] MEDS ORDERED: CEPHALEXIN MONOHYDRATE 500 MG CAPSULE (UD) PO ONE (12:22)
--- NOTE | 2018-08-28 12:27 | PDOC ---
History of Present Illness - General Chief Complaint: Eye Problem Stated Complaint: Stye on eye Time Seen by Provider: 08/28/18 11:51 History Source: Patient Exam Limitations: No Limitations - History of Present Illness Initial Comments: 08/28/18 12:35 Patient with an enlarging stye to his right lower lid. States onset was approximately 2 weeks ago has been using hot soaks but without success. Has seen 2 different doctors including his private physician who prescribed him ophthalmic drops without resolve intact progressively worsen. Went and saw an ticket manager which gave him erythromycin ointment which is not resolving and in fact the portal and is progressively worsening. Patient denies any visual changes but states is painful. Has had no drainage in spite of his continuous soaking. Visual acuity is within normal limits Timing/Duration: unsure, 1 week, getting worse Severity: moderate Past History - Travel Traveled outside of the country in the last 30 days: No Close contact w/someone who was outside of country & ill: No - Past Medical History Allergies/Adverse Reactions: Allergies Allergy/AdvReac Type Severity Reaction Status Date / Time No Known Drug Allergies Allergy Verified 08/28/18 11:34 seafood Allergy Uncoded 08/28/18 11:34 Home Medications: Ambulatory Orders Losartan Potassium 50 mg PO DAILY 02/04/17 Cephalexin Monohydrate [Keflex -] 500 mg PO Q8H #21 capsule 08/28/18 Asthma: Yes ( A CHILD) COPD: No HTN: Yes Kidney Stones: Yes - Immunization History Immunization Up to Date: Yes - Suicide/Smoking/Psychosocial Hx Smoking History: Never smoked Have you smoked in the past 12 months: No Information on smoking cessation initiated: No Hx Alcohol Use: No Drug/Substance Use Hx: No Substance Use Type: None Review of Systems - Review of Systems Able to Perform ROS?: Yes Is the patient limited Malagasy proficient: Yes Constitutional: Yes: Symptoms Reported, See HPI, Malaise. No: Fever HEENTM: Yes: Symptoms Reported, See HPI, Eye Pain, Tearing, Other (onset of stye ). No: Recent change in vision Respiratory: Yes: See HPI. No: Symptoms reported, Cough Integumentary: Yes: Symptoms Reported, Erythema, Lesions Neurological: Yes: Symptoms reported, See HPI *Physical Exam - Vital Signs Last Vital Signs Temp Pulse Resp BP Pulse Ox 98.3 F 61 17 137/80 100 08/28/18 11:42 08/28/18 11:42 08/28/18 11:42 08/28/18 11:42 08/28/18 11:42 - Physical Exam General Appearance: Yes: Nourished, Appropriately Dressed, Apparent Distress HEENT: positive: GIOVANNY, Normal ENT Inspection, TMs Normal, Pharynx Normal, Other (patient with swelling to his right lower lid with a 1 cm pointing lesion consistent with infected portal and that is not draining.) Neck: positive: Supple, Lymphadenopathy (R), Lymphadenopathy (L). negative: Tender Respiratory/Chest: positive: Lungs Clear Gastrointestinal/Abdominal: positive: Normal Bowel Sounds Musculoskeletal: positive: Normal Inspection Extremity: positive: Normal Capillary Refill, Normal Inspection Integumentary: positive: Normal Color, Dry, Warm Neurologic: positive: forestry hunter II-XII NML intact, Fully Oriented, Alert, Normal Mood/ Affect, Normal Response, Motor Strength 5/5 Medical Decision Making - Medical Decision Making 08/28/18 12:[address] Hatfield for advice who into to see patient in his office for evaluation and treatment. Patient is in agreement with that plan and will take to see Dr. Lynn now. Given first dose of Keflex and will start on 500 mg 3 times a day. *DC/Admit/Observation/Transfer Diagnosis at time of Disposition: Hordeolum external Qualifiers: Laterality: right Eyelid: lower Qualified Code(s): H00.012 - Hordeolum externum right lower eyelid - Discharge Dispostion Disposition: HOME Condition at time of disposition: Stable Decision to Admit order: No - Referrals Referrals: Kwabena Edgar MD [Primary Care Provider] - Abilio Hinojosa MD [Staff Physician] - - Patient Instructions Printed Discharge Instructions: DI for Blepharitis Additional Instructions: GO to Dr Hinojosa office now KeFlex 500 mg tablet every 8 hours for the Rest, avoid rubbing eyes Hot soaks to I often as possible to help draw the sterile infection to a head and allow to drain This is not generally a dangerous infection and will usually go away hot soaks Erythromycin ointment to affected eye 3 times a day until healed UseD primarily for lubricating purposE Avoid contact with others until redness and discharge is gone from eyes. Followup with ophthalmology or private physician as needed - Post Discharge Activity Forms/Work/School Notes: Back to Work
[2018-08-28] MEDS ORDERED: CEPHALEXIN MONOHYDRATE 500 MG CAPSULE (UD) ONE (12:28)
== END 2018-08-28 12:44 | disposition home or self-care (01) ==
LOC: JERFT 11:26
DX: H00.012 Hordeolum externum right lower eyelid (principal); I10 Essential (primary) hypertension
CPT/HCPCS: 99281-25

== ENCOUNTER 2021-09-24 23:04 | Emergency (ER) | payer OTHER ==
[2021-09-24 23:14] VITALS: BP 142/91; PULSE 95; TEMP 98.6; BMI 36.0
[2021-09-25] MEDS ORDERED: ACETAMINOPHEN 500 MG TABLET (FP) PO ONE (00:30)
[2021-09-25] MEDS ORDERED: ACETAMINOPHEN 325 MG TABLET (FP) ONE (00:37)
== END 2021-09-25 01:15 | disposition home or self-care (01) ==
LOC: JERFT 23:04
DX: J18.8 Other pneumonia, unspecified organism (principal)
CPT/HCPCS: 99283-25

== ENCOUNTER 2022-03-29 12:08 | Emergency (ER) | payer OTHER ==
[2022-03-29 12:15] VITALS: BP 140/83; PULSE 102; RESP 20; TEMP 98.2; BMI 55.5
[2022-03-29] MEDS ORDERED: predniSONE 20 MG TABLET (UD) PO ONE (13:44)
[2022-03-29] MEDS ORDERED: ALBUTEROL SO4 2.5/IPRATROPIUM 0.5 INH SOL 3 ML VIAL.NEB. NEB SCH (13:45)
[2022-03-29] MEDS ORDERED: ALBUTEROL SO4 2.5/IPRATROPIUM 0.5 INH SOL 3 ML VIAL.NEB. NEB ONE ×2 (13:51→14:26)
[2022-03-29] MEDS ORDERED: predniSONE 20 MG TABLET (UD) ONE (13:51)
== END 2022-03-29 15:48 | disposition home or self-care (01) ==
LOC: JERFT 12:08
PROC: 3E0F7GC Introduction of Other Therapeutic Substance into Respiratory Tract, Via Natural or Artificial Opening (ICD-10-PCS; principal; 2022-03-29)
DX: J45.21 Mild intermittent asthma with (acute) exacerbation (principal)
CPT/HCPCS: 99283-25

== ENCOUNTER 2022-04-18 12:39 | Emergency (ER) | payer OTHER ==
[2022-04-18 12:49] VITALS: BP 155/97; PULSE 106; RESP 18; TEMP 99; BMI 37.5
[2022-04-18] MEDS ORDERED: ALBUTEROL SO4 2.5/IPRATROPIUM 0.5 INH SOL 3 ML VIAL.NEB. NEB ONE ×2 (13:04→13:53)
[2022-04-18] MEDS ORDERED: ONDANSETRON 4 MG TABLET PO ONE (13:04)
[2022-04-18] MEDS ORDERED: IBUPROFEN 600 MG TABLET (FP) PO ONE ×2 (13:04→13:53)
[2022-04-18] MEDS ORDERED: ONDANSETRON *ODT* 4 MG TABLET ONE (13:53)
== END 2022-04-18 16:56 | disposition home or self-care (01) ==
LOC: JER 12:39
PROC: 3E0F7GC Introduction of Other Therapeutic Substance into Respiratory Tract, Via Natural or Artificial Opening (ICD-10-PCS; principal; 2022-04-18)
DX: J09.X2 Influenza due to identified novel influenza A virus with other respiratory manifestations (principal); R06.2 Wheezing; R09.81 Nasal congestion
CPT/HCPCS: 0241U-QW; 71046-TC-FY; 99284-25